=== PATIENT | male | born 2000 | race Hispanic/Latino ===

== ENCOUNTER 2021-02-14 13:37 | Emergency (ER) | payer SELFPAY ==
[~2021-02-14] VITALS: Ht 185.4 cm; Wt 149.7 kg
[2021-02-14] MEDS ORDERED: CASIRIVIMAB/IMDEVIMAB 10 ML in SODIUM CHLORIDE 0.9% 100 ML IV ONE (14:15)
[2021-02-14 17:02] VITALS: BP 127/62
== END 2021-02-14 17:03 | disposition home or self-care (01) ==
LOC: ER 14:35
DX: R07.89 Other chest pain (principal); R53.81 Other malaise; U07.1 COVID-19
CPT/HCPCS: 71045; 93005; 99283; J7050